=== PATIENT | female | born 1985 | race Caucasian/White ===

== ENCOUNTER 2017-11-09 15:22 | Observation (INO) | payer MEDICAID ==
[~2017-11-09] VITALS: Ht 170.2 cm; Wt 65.0 kg
[~2017-11-09 15:22] MED LIST: NO HOME MEDS
[2017-11-09 16:22] LABS: ALANINE AMINOTRANSFERASE 20 U/L (12-78); ALBUMIN 3.9 G/DL (3.4-5.0); ALBUMIN/GLOBULIN RATIO 1.2 (1.1-1.5); ALKALINE PHOSPHATASE 45 IU/L (46-116); ANION GAP 10 (8-16); ASPARTATE AMINO TRANSFERASE 13 U/L (10-37); BILIRUBIN,TOTAL 0.3 MG/DL (0.1-1.0); BLOOD UREA NITROGEN 17 MG/DL (7-18); BUN/CREATININE RATIO 21.8 (6.6-38.0); CALCIUM 8.9 MG/DL (8.5-10.1); CHLORIDE 103 MMOL/L (99-107); CREATININE 0.78 MG/DL (0.40-0.90); GLUCOSE 95 MG/DL (70-104); POTASSIUM 4.1 MMOL/L (3.5-5.1); SODIUM 137 MMOL/L (135-145); TOTAL CARBON DIOXIDE 24.5 MMOL/L (24-32); TOTAL PROTEIN 7.2 G/DL (6.4-8.2); eGFR 85 ML/MIN
[2017-11-09 16:40] LABS: BASOPHILS % (AUTO) 0.1 % (0-1); EOSINOPHILS # (AUTO) 0.1 X10'3 (0-0.9); EOSINOPHILS % (AUTO) 1.7 % (0-6); LYMPHOCYTES % (AUTO) 31.1 % (21-51); MEAN CORPUSCULAR HEMOGLOBIN 16.7 PG (27.0-31.0); MEAN CORPUSCULAR HGB CONC 29.7 % (33.0-36.5); MEAN CORPUSCULAR VOLUME 56.1 FL (78-98); MEAN PLATELET VOLUME 8.4 FL (7.4-10.4); MONOCYTES # (AUTO) 0.4 X10'3 (0-0.9); MONOCYTES % (AUTO) 6.5 % (2-12); NEUTROPHILS % (AUTO) 60.6 % (42-75); PLATELET COUNT 252 X10'3 (140-440); RED BLOOD COUNT 3.65 X10'6 (4.20-5.60); RED CELL DISTRIBUTION WIDTH 20.7 % (11.5-14.5); WHITE BLOOD COUNT 6.6 X10'3 (4.5-11.0)
[2017-11-09 16:42] LABS: HEMATOCRIT 20.4 % (35.0-45.0); HEMOGLOBIN 6.1 g/dl (12.0-16.0)
[2017-11-09 17:17] LABS: ANISOCYTOSIS 3+; HYPOCHROMASIA 3+; PLATELET ESTIMATE NORMAL
[2017-11-09 17:20] LABS: ELLIPTOCYTES FEW; SCHISTOCYTES FEW
[2017-11-09 17:21] LABS: STOMATOCYTES FEW
[2017-11-09 18:02] LABS: CLARITY,URINE SLIGHTLY CLOUDY (Clear); COLOR,URINE YELLOW (Yellow); GLUCOSE, URINE NEGATIVE (Neg); KETONES,URINE NEGATIVE (Neg); LEUKOCYTE ESTERASE ,URINE NEGATIVE (Neg); NITRITES, URINE NEGATIVE (Neg); OCCULT BLOOD,URINE NEGATIVE (Neg); PROTEIN,URINE NEGATIVE (Neg); UROBILINOGEN,URINE 0.2 E.U/dL (0.2-1.0)
[2017-11-09 18:03] LABS: URINE HCG NEGATIVE (NEG)
[2017-11-09 18:11] LABS: UA COLLECTION TYPE CLN CATCH MIDSTREAM
[2017-11-09 18:12] LABS: MUCUS STRANDS MODERATE /LPF (Neg); SQUAMOUS EPITHELIAL CELL,UR FEW /LPF (FEW)
[2017-11-09 18:13] LABS: BACTERIA,URINE FEW /HPF (Neg); RBC,URINE 0-2 /HPF (0-2); WBC,URINE 0-4 /HPF (0-4)
[2017-11-09 19:29] VITALS: BP 105/49
[2017-11-09 19:53] VITALS: BP 121/63
[2017-11-09] MEDS ORDERED: HYDROcodone/acetaminophen 5mg/325mg tablet PO PRN (20:35)
[2017-11-09] MEDS ORDERED: acetaminophen 325mg tablet PO PRN (20:35)
[2017-11-09] MEDS ORDERED: magnesium hydroxide 30ml (MOM) UD suspension PO PRN (20:35)
[2017-11-09] MEDS ORDERED: mag hydrox/Alum hydrox/simeth 30ml oral suspension PO PRN (20:35)
[2017-11-09] MEDS ORDERED: ondansetron/PF 4mg/2ml inj IV PRN (20:35)
[2017-11-09] MEDS: normal saline 1000ml 1,000 ML IV SCH (20:48)
[2017-11-09 20:49] VITALS: BP 116/71
[2017-11-09 20:58] VITALS: BP 116/71
[2017-11-09 21:15] VITALS: BP 120/63
[2017-11-09 22:25] VITALS: BP 110/51
[2017-11-10] VITALS: BP 116/58
[2017-11-10 05:29] LABS: BASOPHILS # (AUTO) 0.1 X10'3 (0-0.2); EOSINOPHILS # (AUTO) 0.3 X10'3 (0-0.9); HEMATOCRIT 25.5 % (35.0-45.0); HEMOGLOBIN 7.9 g/dl (12.0-16.0); LYMPHOCYTES % (AUTO) 31.8 % (21-51); MEAN CORPUSCULAR HEMOGLOBIN 19.2 PG (27.0-31.0); MEAN CORPUSCULAR VOLUME 61.8 FL (78-98); MEAN PLATELET VOLUME 8.2 FL (7.4-10.4); MONOCYTES # (AUTO) 0.6 X10'3 (0-0.9); MONOCYTES % (AUTO) 10.2 % (2-12); NEUTROPHILS # (AUTO) 3.2 X10'3 (1.8-7.7); PLATELET COUNT 231 X10'3 (140-440); RED BLOOD COUNT 4.12 X10'6 (4.20-5.60); RED CELL DISTRIBUTION WIDTH 26.4 % (11.5-14.5); WHITE BLOOD COUNT 6.2 X10'3 (4.5-11.0)
[2017-11-10 05:57] LABS: ALBUMIN 3.4 G/DL (3.4-5.0); ANION GAP 7 (8-16); BLOOD UREA NITROGEN 14 MG/DL (7-18); BUN/CREATININE RATIO 15.4 (6.6-38.0); CALCIUM 8.6 MG/DL (8.5-10.1); CHLORIDE 106 MMOL/L (99-107); CREATININE 0.91 MG/DL (0.40-0.90); GLUCOSE 89 MG/DL (70-104); POTASSIUM 4.2 MMOL/L (3.5-5.1); SODIUM 138 MMOL/L (135-145); TOTAL CARBON DIOXIDE 25.5 MMOL/L (24-32); eGFR 71 ML/MIN
[2017-11-10 06:22] LABS: ANISOCYTOSIS 3+; MICROCYTOSIS 2+; PLATELET ESTIMATE NORMAL
[2017-11-10 06:24] LABS: POLYCHROMASIA 1+
[2017-11-10 07:00] VITALS: BP 100/41
[2017-11-10] MEDS: ascorbic acid 500mg tablet PO SCH ×2 (07:45→12:36)
[2017-11-10] MEDS ORDERED: ferrous sulfate 300mg/5ml UD oral liquid PO SCH (08:00)
[2017-11-10] MEDS ORDERED: docusate sod 100mg capsule PO SCH (08:00)
[2017-11-10] MEDS ORDERED: IRON,CARBONYL (45 MG ELEMENTAL IRON) SR.TABLET PO SCH (08:00)
[2017-11-10 11:00] VITALS: BP 103/56
[2017-11-10] MEDS: normal saline 1000ml 1,000 ML IV SCH (12:36)
[2017-11-10] MEDS ORDERED: FER300L PO (15:11)
== END 2017-11-10 15:57 | disposition home or self-care (01) ==
LOC: ER 15:22 → ED HOLD 20:33 → SUR 3N 22:22
PROVIDERS: ADMIT Family Medicine; ATTEND Internal Medicine
DX: D64.9 Anemia, unspecified (principal); N92.0 Excessive and frequent menstruation with regular cycle; F17.210 Nicotine dependence, cigarettes, uncomplicated; R42 Dizziness and giddiness
CPT/HCPCS: 36415; 36430; 76856; 80048; 80053; 81001; 81025; 85025; 86885; 86900; 86901; 86920; 87070; 99285; G0378; J7030; P9016

== ENCOUNTER 2019-07-11 13:27 | Emergency (ER) | payer MEDICAID ==
[~2019-07-11] VITALS: Ht 170.2 cm; Wt 68.0 kg
[~2019-07-11 13:27] MED LIST changes: +FER300L PO
[2019-07-11 13:30] VITALS: BP 125/87
[2019-07-11] MEDS ORDERED: AZIT-63 PO (14:23)
[2019-07-11] MEDS ORDERED: ALBU8.5H8 IH (14:23)
== END 2019-07-11 14:35 | disposition home or self-care (01) ==
LOC: ER 13:27
DX: J20.9 Acute bronchitis, unspecified (principal); F17.210 Nicotine dependence, cigarettes, uncomplicated; Z98.51 Tubal ligation status; Z79.2 Long term (current) use of antibiotics; Z79.899 Other long term (current) drug therapy
CPT/HCPCS: 99283; 99406

== ENCOUNTER 2019-07-18 13:34 | Emergency (ER) | payer MEDICAID ==
[~2019-07-18] VITALS: Ht 170.2 cm; Wt 68.2 kg
[~2019-07-18 13:34] MED LIST changes: +ALBU8.5H8 IH; +AZIT-63 PO
[2019-07-18 13:52] VITALS: BP 117/77
[2019-07-18 14:16] LABS: BASOPHILS % (AUTO) 0.4 % (0-1); EOSINOPHILS % (AUTO) 0.1 % (0-6); HEMATOCRIT 43.1 % (35.0-45.0); HEMOGLOBIN 14.3 g/dl (12.0-16.0); LYMPHOCYTES # (AUTO) 1.7 X10'3 (1.1-4.8); LYMPHOCYTES % (AUTO) 16.8 % (21-51); MEAN CORPUSCULAR HEMOGLOBIN 26.4 PG (27.0-31.0); MEAN CORPUSCULAR HGB CONC 33.2 g/dL (33.0-36.5); MEAN CORPUSCULAR VOLUME 79.5 FL (78-98); MEAN PLATELET VOLUME 8.6 FL (7.4-10.4); MONOCYTES # (AUTO) 0.5 X10'3 (0-0.9); MONOCYTES % (AUTO) 4.6 % (2-12); NEUTROPHILS % (AUTO) 78.1 % (42-75); PLATELET COUNT 265 X10'3 (140-440); RED BLOOD COUNT 5.42 X10'6 (4.20-5.60); RED CELL DISTRIBUTION WIDTH 17.3 % (11.5-14.5); WHITE BLOOD COUNT 10.2 X10'3 (4.5-11.0)
[2019-07-18 14:28] LABS: ALANINE AMINOTRANSFERASE 21 U/L (12-78); ALBUMIN 4.1 G/DL (3.4-5.0); ALBUMIN/GLOBULIN RATIO 1.1 (1.1-1.5); ALKALINE PHOSPHATASE 59 IU/L (46-116); AMYLASE 43 U/L (25-115); ANION GAP 11 (8-16); ASPARTATE AMINO TRANSFERASE 17 U/L (10-37); BILIRUBIN,TOTAL 0.5 MG/DL (0.1-1.0); BLOOD UREA NITROGEN 14 MG/DL (7-18); BUN/CREATININE RATIO 15.7 (6.6-38.0); CHLORIDE 103 MMOL/L (99-107); CREATININE 0.89 MG/DL (0.40-0.90); GLUCOSE 89 MG/DL (70-104); LIPASE 139 U/L (73-393); POTASSIUM 4.1 MMOL/L (3.5-5.1); SODIUM 139 MMOL/L (135-145); TOTAL CARBON DIOXIDE 24.9 MMOL/L (24-32); eGFR 72 ML/MIN
[2019-07-18] MEDS ORDERED: ketorolac tromethamine 15mg/ml inj. IM ONE (16:15)
[2019-07-18] MEDS ORDERED: metoclopramide 5 mg/ml inj IM ONE (16:15)
[2019-07-18] MEDS ORDERED: HYDR-3965 PO (17:44)
[2019-07-18] MEDS ORDERED: ONDA8TAB13 PO (17:44)
== END 2019-07-18 17:54 | disposition home or self-care (01) ==
LOC: ER 13:35
DX: N83.201 Unspecified ovarian cyst, right side (principal); F17.210 Nicotine dependence, cigarettes, uncomplicated; Z90.710 Acquired absence of both cervix and uterus; Z79.2 Long term (current) use of antibiotics; Z79.899 Other long term (current) drug therapy; Z98.51 Tubal ligation status
CPT/HCPCS: 36415; 74176; 80053; 82150; 83690; 85025; 96372; 99284; J1885; J2765